=== PATIENT | female | born 1965 | race American Indian/Alaskan Native ===

== ENCOUNTER 2018-08-10 06:27 | Day surgery (SDC) | payer OTHER ==
[2018-08-04 08:53] VITALS: BMI 37.8
[2018-08-10] MEDS ORDERED: Propofol 10 mg/ml Inj (20 ML) ONE (07:36)
[2018-08-10] MEDS ORDERED: Midazolam 2 MG/2 ML VIAL ONE (07:38)
[2018-08-10] MEDS ORDERED: cefOXitin IV 2 gm in Dextrose 2 GM/50 ML BAG IVPB ONE (07:41)
[2018-08-10] MEDS ORDERED: HYDROmorphone 0.5 mg/0.5 ml ISec IVP PRN (08:05)
[2018-08-10 11:28] VITALS: TEMP 97.3
[2018-08-10 11:30] VITALS: BP 150/71; PULSE 78; RESP 15; O2SAT 100
--- NOTE | 2018-08-10 19:22 | OP ---
PROCEDURE DATE: 08/10/2018 PREOPERATIVE DIAGNOSES: Fibroid uterus, menorrhagia. POSTOPERATIVE DIAGNOSES: Fibroid uterus, menorrhagia/endometrial polyp. FINDINGS: A 2 cm posterior submucosal polyp/myoma. The remainder of the endometrial cavity and endocervical canal is normal. SURGEON: Carlos Enrique Soto MD ANESTHESIA: General. COMPLICATIONS: Nil. DESCRIPTION OF PROCEDURE: After the risks, benefits and alternatives of the planned procedures including but not limited to infection, hemorrhage, deep vein thrombosis, atelectasis, pneumonia, pulmonary embolism, damage to the bladder, damage to the ureter, renal insufficiency, renal failure, wound infection, wound dehiscence, incisional hernia, keloid formation, damage to the large and small intestines, damage to the inferior vena cava and aorta requiring extensive repair, anesthesia complications, electrolyte imbalance, possibility of , fluid overload, cerebral edema, air embolism and other complications that were discussed but are not listed above had been explained to the patient and all her questions answered, informed consent was obtained. The patient was taken to the operating room in a stable condition. Under a suitable level of general anesthesia, she was prepped and draped in a sterile fashion after having been placed in the dorsal lithotomy position. Bladder was emptied by straight catheterization. Examination under anesthesia revealed a normal-sized uterus, anteverted, with no adnexal masses. A weighted speculum was inserted into the vagina. The anterior lip of the cervix was grasped using a single-tooth tenaculum, and endocervical curettage was performed and scant tissue was obtained. The uterus was sounded to 7 cm. The cervix was dilated with #16 Hanks dilator. Hysteroscope was inserted into the uterus and using a MyoSure device, a 2 cm posterior submucosal polyp/myoma was resected up to the level of the endometrium with good hemostasis. The remainder of the endometrial cavity was noted to be normal. Hysteroscope was then removed and endometrial curettage was performed. Scant tissue was obtained. Instruments were then removed from the vagina. The patient was transferred to the recovery room in stable condition. Pad and instrument counts were correct x2. There were no complications. Carlos Enrique Soto MD [facility] # [id number]
== END 2018-08-10 10:30 | disposition home or self-care (01) ==
LOC: C.SDS 06:27
PROVIDERS: ATTEND Obstetrics & Gynecology Reproductive Endocrinology
DX: D25.9 Leiomyoma of uterus, unspecified (principal); N84.0 Polyp of corpus uteri; N92.0 Excessive and frequent menstruation with regular cycle
CPT/HCPCS: 36415; 58558; 86850; 86900; 88305; J0694; J1170; J2250; J2704; J3010